=== PATIENT | female | born 1990 | race Two or more races ===

== ENCOUNTER 2017-03-15 10:28 | Emergency (ER) | payer MEDICAID ==
[~2017-03-15 10:28] MED LIST: PRENATA CHEWAB1 EAC1 PO; UNASOM PO; VITAMIN B-625 M1 PO
[2017-03-15 12:20] LABS: BASO % 0.1 % (0-2); EOS % 0.5 % (0-7); EOSINOPHIL ABSOLUTE COUNT 0.2 tho/cmm (0.0-0.7); HCT-HEMATOCRIT 40.8 % (34.0-49.0); HGB-HEMOGLOBIN 13.7 gm/dl (12.0-15.5); LYMPH % 2.8 % (20-45); LYMPH ABSOLUTE COUNT 0.8 tho/cmm (0.8-4.5); MCH (MEAN CORPUSCULAR HGB) 29.3 pg (28.0-32.0); MCHC MEAN CORPUSCULAR HGB CONC 33.6 % (32.0-36.0); MCV (MEAN CELL VOLUME) 87.4 fl (82.0-96.0); MEAN PLATELET VOLUME 9.8 cmc (9.4-12.4); MONOCYTE ABSOLUTE COUNT 1.5 tho/cmm (0.0-1.2); NEUTROPHIL ABSOLUTE COUNT 27.3 tho/cmm (1.6-8.0); NEUTROPHIL-AUTOMATED 27.3 tho/cmm (1.6-8.0); NEUTROPHILS % 91.6 % (40-80); PLATELET COUNT 392 tho/cmm (150-450); RED BLOOD COUNT 4.67 mil/cmm (4.00-5.20); RED CELL DISTRIBUTION WIDTH 12.7 % (12.4-16.4); WHITE BLOOD COUNT 29.9 tho/cmm (4.0-10.0)
[2017-03-15 12:37] LABS: PREGNANCY-SERUM NEGATIVE (NEGATIVE)
[2017-03-15 12:40] LABS: ALB/GLOB RATIO 0.8 (0.8-2.0); ALBUMIN 3.5 g/dl (3.5-5.0); ALKALINE PHOSPHATASE 64 U/L (33-138); ALT/SGPT 20 U/L (12-78); ANION GAP 16 mmol/L (0-20); AST/SGOT 16 U/L (10-40); BILIRUBIN,TOTAL 0.6 mg/dl (0-1.5); BLOOD UREA NITROGEN 11 mg/dl (6-24); CALCIUM 8.5 mg/dl (8.5-10.5); CARBON DIOXIDE-VENOUS 22 mmol/L (22-32); CHLORIDE 109 mmol/l (96-110); CREATININE 0.84 mg/dl (0.50-1.10); GLUCOSE 110 mg/dL (70-110); LIPASE 114 U/L (73-393); POTASSIUM 4.5 mmol/L (3.7-5.1); SODIUM 142 mmol/L (135-145); eGFR VALUE FOR BLACK >90 mL/Min
[2017-03-15] MEDS ORDERED: NORCO 5-325 TA1 EACH PO (14:40)
[2017-03-15] MEDS ORDERED: LOPERAMIDE2 M2 PO (14:40)
[2017-03-15] MEDS ORDERED: ZOFRAN ODT4 MG PO (14:40)
[2017-03-15] MEDS ORDERED: BACTRIM DS TAB1 EAC2 PO (14:40)
== END 2017-03-15 14:57 ==
LOC: EDMED 10:28
PROVIDERS: Emergency Medicine
DX: K52.9 Noninfective gastroenteritis and colitis, unspecified (principal); Z90.49 Acquired absence of other specified parts of digestive tract
CPT/HCPCS: J1170; J2405; J7030; Q9967